=== PATIENT | female | born 1955 | race Caucasian/White ===

== ENCOUNTER → 2020-11-11 | Outpatient (CLI) | payer OTHER ==
[~2020-11-11] MED LIST: CANA300T PO; CLOB15CR TP; CRAN250C PO; CRESTOR5 MG PO; ESTR42.53 VG; GLIM4TAB8 PO; LEVO75TA5 PO; MIRA50TA PO; MULT-735 PO; OMEG100021 PO; PANT40TA77 PO; VITA1TAB19 PO; vitamin PO
== END ==
LOC: LAB 13:21
PROVIDERS: ATTEND Obstetrics & Gynecology
DX: U07.1 COVID-19 (principal); Z01.812 Encounter for preprocedural laboratory examination
CPT/HCPCS: U0003